=== PATIENT | female | born 2000 ===

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

== ENCOUNTER 2019-01-22 20:28 | Outpatient (CLI) | payer MEDICAID ==
[~2019-01-22] VITALS: Ht 170.2 cm; Wt 76.4 kg
--- NOTE | 2019-01-22 20:35 | NUR ---
SHERINE VALDEZ V presented to unit via ambulatory from ED registration, accompanied by family member, with c/o FALL/LOTS OF MOVEMENT. SHERINE VALDEZ V weighed, gowned, voided, and to bed. EFHM and TOCO applied, VS taken. SHERINE VALDEZ V oriented to bed controls, call light, TV, heat, and A/C controls. up changing assessments to follow per this rn.
[2019-01-22 22:00] VITALS: BP 108/70
[2019-01-22] MEDS ORDERED: PREN-53 PO (23:40)
[2019-01-23 00:37] VITALS: BP 105/65
--- NOTE | 2019-01-23 00:40 | NUR ---
Discharge packet given and explained, understanding voiced, denies needs or concerns. Pt ambulatory off unit at this time accompanied by family member.
--- NOTE | 2019-01-25 22:03 | Physician Query-Final Dx ---
MARKUS FISCHER 01/25/19 2203: Clinic Account Progress/Dx Physician Query: Please give diagnosis Date of Service Jan 22, 2019 at 20:28 ANGELIKA PIKE MD 02/08/19 1253: Clinic Account Progress/Dx DIAGNOSIS: Diagnosis Decreased movement at 25 weeks. MARKUS FISCHER Jan 25, 2019 22:03 ANGELIKA PIKE MD Feb 08, 2019 12:53
== END 2019-01-23 00:40 | disposition home or self-care (01) ==
LOC: LDRP 20:28 → WSo 20:28
PROVIDERS: ATTEND Family Medicine
DX: O36.8120 Decreased fetal movements, second trimester, not applicable or unspecified (principal); Z3A.25 25 weeks gestation of pregnancy
CPT/HCPCS: 99213

== ENCOUNTER 2019-04-26 08:24 | Inpatient (IN) | payer MEDICAID ==
[2019-04-26] VITALS (25 sets, daily range): BP systolic 114–143; BP diastolic 69–97
[~2019-04-26] VITALS: Ht 170.2 cm; Wt 76.4 kg
[~2019-04-26 08:24] MED LIST: PREN-53 PO
--- NOTE | 2019-04-26 08:30 | NUR ---
SHERINE VALDEZ V presented to unit via AMBULATION from ED, accompanied by MOTHER, with c/o LABOR. SHERINE VALDEZ V weighed, gowned, voided, and to bed. EFHM and TOCO applied, VS taken. SHERINE VALDEZ V oriented to bed controls, call light, TV, heat, and A/C controls.
--- NOTE | 2019-04-26 08:35 | NUR ---
SEE LABOR FLOWSHEET FOR DOCUMENTATION.
--- NOTE | 2019-04-26 08:45 | NUR ---
PT REPORTS C/O CONTRACTIONS OFF AND ON FOR THE LAST TWO DAYS, WITH INCREASING PAIN TODAY AND SLIGHT SPOTTING THIS AM IN THE SHOWER, PT DENIES LEAKING FLUID, DECREASED MOVEMENT, RECENT INTERCOURSE OR OTHER C/O. PT REPORTS SEEING DR YOUNG ON FridayMarch AND WAS 2CM, 75%. PT IS SCHEDULED FOR 10:[address] YOUNG. INITIAL ASSESSMENT COMPLETED, VSS, PLAN OF CARE EXPLAINED WILL MONITOR CLOSELY.
[2019-04-26] MEDS ORDERED: MEPIVACAINE (CARBOCAINE) 2% 50 ML VIAL ONE (09:58)
[2019-04-26] MEDS ORDERED: D5 LR IV SOLUTION 1,000 ML IV ONE (09:59)
[2019-04-26] MEDS ORDERED: OXYTOCIN/NORMAL SALINE 500 ML IV ONE (09:59)
[2019-04-26] MEDS ORDERED: D5 LR IV SOLUTION 1,000 ML IV SCH (10:11)
[2019-04-26 10:32] LABS: BASOPHILS % (AUTO) 0 % (0-10); EOSINOPHILS % (AUTO) 0 % (0-10); HEMATOCRIT 38 % (35-52); HEMOGLOBIN 13.2 G/DL (11.5-16.0); LYMPHOCYTES # (AUTO) 0.9 X 10^3 (1.0-4.0); LYMPHOCYTES % (AUTO) 6 % (12-44); MEAN CORPUSCULAR HEMOGLOBIN 29 PG (25-34); MEAN CORPUSCULAR HGB CONC 35 G/DL (32-36); MEAN CORPUSCULAR VOLUME 83 FL (80-99); MEAN PLATELET VOLUME 11.7 FL (7.4-10.4); MONOCYTES # (AUTO) 0.8 X 10^3 (0.0-1.0); MONOCYTES % (AUTO) 5 % (0-12); NEUTROPHILS # (AUTO) 13.3 X 10^3 (1.8-7.8); NEUTROPHILS % (AUTO) 89 % (42-75); PLATELET COUNT 212 10^3/uL (130-400); RED CELL DISTRIBUTION WIDTH 13.8 % (10.0-14.5)
--- NOTE | 2019-04-26 10:44 | History & Physical-OB ---
OB - Chief Complaint & HPI Date/Time Date of Admission: Date of Admission: Apr 26, 2019 at 10:00 Date seen by a Provider: Apr 26, 2019 Time Seen by a Provider: 10:15 Chief Complaint/History OB-Reason for Admission/Chief: Onset of Labor Hx : 1 Hx Para: 0 Expected Date of Delivery: May 02, 2019 Gestational Age in Weeks: 39 Gestational Age in Days: 1 Admission Nurse Assessment Rev: Yes Allergies and Home Medications Allergies Coded Allergies: No Known Drug Allergies (Unverified , 04/26/19) Home Medications Zeg752/Iron Fumarate/FA/Dss 1 Each Tablet, 1 EACH PO DAILY, (Reported) Patient Home Medication List Home Medication List Reviewed: Yes OB - History Hx of Present Ultrasounds: Normal mid trimester US Medical Complications: None Patient Past Medical History No chronic medical problems OB - Admission Exam Physical Exam Lungs: Clear Abdomen: Gravid Cervical Dilatation: 10cm Effacement: 100% Station: +1 Membranes: Intact Amniotic Fluid: Clear Heart Rate: 140's Accelerations: Accelerations Present Short Term Variability: Absent Senior Living Variability: Average (6-25) Intensity: Moderate Labs Laboratory Tests Test 04/26/19 10:15 Range/Units White Blood Count 15.0 H 4.3-11.0 10^3/uL Red Blood Count 4.57 4.35-5.85 10^6/uL Hemoglobin 13.2 11.5-16.0 G/DL Hematocrit 38 35-52 % Mean Corpuscular Volume 83 80-99 FL Mean Corpuscular Hemoglobin 29 25-34 PG Mean Corpuscular Hemoglobin Concent 35 32-36 G/DL Red Cell Distribution Width 13.8 10.0-14.5 % Platelet Count 212 130-400 10^3/uL Mean Platelet Volume 11.7 H 7.4-10.4 FL Neutrophils (%) (Auto) 89 H 42-75 % Lymphocytes (%) (Auto) 6 L 12-44 % Monocytes (%) (Auto) 5 0-12 % Eosinophils (%) (Auto) 0 0-10 % Basophils (%) (Auto) 0 0-10 % Neutrophils # (Auto) 13.3 H 1.8-7.8 X 10^3 Lymphocytes # (Auto) 0.9 L 1.0-4.0 X 10^3 Monocytes # (Auto) 0.8 0.0-1.0 X 10^3 Eosinophils # (Auto) 0.0 0.0-0.3 10^3/uL Basophils # (Auto) 0.0 0.0-0.1 10^3/uL OB - Assessment/Plan/Diagnosis Assessment Assessment: active labor Admission Dx 1. IUP at 39 weeks Admission Status: Inpatient Order (span 2 midnights) Reason for Inpatient Admission: L&D Plan Plan: Expectant Management ROSIO YOUNG MD Apr 26, 2019 10:44
[2019-04-26 11:04] LABS: BAND NEUTROPHILS 5 %; EOSINOPHILS % (MANUAL) 1 %; LYMPHOCYTES % (MANUAL) 5 %; MONOCYTES % (MANUAL) 5 %; NEUTROPHILS % (MANUAL) 84 %; POLYCHROMASIA SLIGHT
[2019-04-26] MEDS ORDERED: BENZOCAINE/MENTHOL (DERMOPLAST) 56 ML CAN TP ONE (11:12)
[2019-04-26] MEDS ORDERED: OXYTOCIN/NORMAL SALINE 500 ML IV SCH (11:27)
[2019-04-26] MEDS: IBUPROFEN 600 MG (MOTRIN) TAB PO SCH ×3 (11:30→23:10)
[2019-04-26] MEDS ORDERED: BENZOCAINE/MENTHOL (DERMOPLAST) 56 ML CAN TP PRN (11:30)
[2019-04-26] MEDS ORDERED: MEASLES,MUMPS,RUBELLA 1 EA INJ SQ ONE (11:30)
[2019-04-26] MEDS ORDERED: TETANUS,DIPTH,PERTUSS P/F (BOOSTRIX) 0.5 ML VIAL IM ONE (11:30)
[2019-04-26] MEDS ORDERED: WITCH HAZEL(TUCKS) 40 EA JAR TOP PRN (11:30)
--- NOTE | 2019-04-26 11:31 | NUR ---
SCHEDULED MOTRIN GIVEN PO, 2ND PITOCIN BAG STARTED. FFU/2 LT LOCHIA NOTED.
--- NOTE | 2019-04-26 11:31 | OB Labor & Delivery Record ---
L&D History Date of Service Date of Service: Apr 26, 2019 History Expected Date of Delivery: May 02, 2019 Gestational Age in Weeks: 39 Hx : 1 Hx Para: 0 Complications Events: Routine care Operative Indications (Cesarea: N/A-Vaginal Delivery Intrapartal Events: None L&D Stage1 Stage One Onset of Labor - Date: Apr 26, 2019 Onset of Labor - Time: 03:00 Monitors and Tracing Monitor Mode: External Monitor Accelerations: Uniform Monitor Decelerations: None Station: 0 Group Home Variability: Average (6-10) Short Term Variability: Present Presentation: Vertex Signs of Distress by FHT Signs of Distress no Rupture of Membranes Spontaneous Ruture of Membrane: No Amniotic Membrane Rupture Time: 10:45 Amniotic Membrane Fluid Desc.: Clear Vaginal Bleeding Description: None L&D Stage2 Stage Two Stage II Date: Apr 26, 2019 Stage II Time: 11:00 Monitors and Tracing Monitor Mode: Internal Monitor Accelerations: Uniform Monitor Decelerations: None Obgyn Specialist Variability: Average (6-10) Position: Left Occiput Anterior Presentation: Vertex Signs of Distress by FHT Signs of Distress no Cord Descript/Complications Cord Vessel Description: 3 Vessels Delivery Type Infant Delivery Method: Spontaneous Vaginal Anterior Shoulder: Left Episiotomy/Perineal Laceration Laceraction(s)/Extensions: Yes Episiotomy Description: Periurethral Extnsion/lac, Perineal Extension/lac (Left) Sutures Used: Vicryl Condition of Infant Delivery 1 minute Comment: 8 5 minute Comment: 9 Condition of Infant Condition of Infant: Living Exam: No Observed Abnormalities Resuscitation Resuscitation: N/A - Spontaneous Resp L&D Stage3 Stage Three Stage III Date: Apr 26, 2019 Stage III Time: 11:05 Placenta Delivery Placenta Delivery: Spontaneous Delivery Summary Summary Estimated blood loss (mL): 200 Condition of Delivery Examined: Cervix Examined Post Hemorrhage: No Intervention Required none ROSIO YOUNG MD Apr 26, 2019 11:31
[2019-04-26] MEDS ORDERED: CATHETER FLUSH 10 ML SYR IV SCH ×2 (14:00)
--- NOTE | 2019-04-26 15:20 | NUR ---
PERICARE PREFORMED, FFU/2 PAD AND PANTIES APPLIED, PT TRANSFERRED TO ROOM [id number] BY FOR CONTINUED PP CARE. NO DISTRESS NOTED, WILL MONITOR.
[2019-04-26] MEDS ORDERED: MEPIVACAINE (CARBOCAINE) 2% 20 ML VIAL INJ ONE (16:30)
--- NOTE | 2019-04-26 16:40 | NUR ---
IV COMPLETE, IV HEP LOCKED. AMBULATED TO BR, VOIDED WITHOUT DIFFICULTY. S/O AT SIDE.
--- NOTE | 2019-04-26 18:51 | NUR ---
PT RESTING IN BED WITH FAMILY AND INFANT AT SIDE, NO DISTRESS NOTED, WILL MONITOR CLOSELY.
--- NOTE | 2019-04-26 20:20 | NUR ---
PT WITH AT SIDE. NO NEEDS OR CONCERNS VOICED. WILL RETURN FOR ASSESSMENT.
[2019-04-26] MEDS: DOCUSATE SODIUM 100 MG (COLACE) CAP PO SCH (23:10)
--- OUTSIDE RECORDS SUMMARY | 2019-04-27 00:58 | XMS REPORT ---
Author Author ANNIE MINER Organization [facility] Address [address] [place] [address] Care Team Providers Care Electrical Engineering Manager Name Role Phone ANNIE MINER Unavailable PROBLEMS Type Condition ICD9-CM Code XBR18-EV Code Onset Dates Condition Status SNOMED Code Problem Dermatophytosis of nail 110.1 Active 873532585 Problem Other acne 706.1 Active 22484345 Problem Encounter for long-term (current) use of other medications V58.69 Active 545547317 ALLERGIES No Known Allergies SOCIAL HISTORY Never Assessed PLAN OF CARE Activity Details Follow Up 1 Year with shae Miner visit Reason: VITAL SIGNS Height 64.5 in 2017-01-09 Weight 160.9 lbs 2017-01-09 Temperature 98.6 degrees Fahrenheit 2017-01-09 Heart Rate 112 bpm 2017-01-09 Respiratory Rate 18 2017-01-09 BMI 27.19 kg/m2 2017-01-09 Blood pressure systolic 108 mmHg 2017-01-09 Blood pressure diastolic 66 mmHg 2017-01-09 MEDICATIONS Medication Instructions Dosage Frequency Start Date End Date Duration Status Depo-Provera 150 MG/ML 1 ml Dec, May, 30 day(s) Active RESULTS Name Result Date Reference Range TEST, URINE (IN HOUSE) 2017-01-09 RESULTS negative Lot # [id number] Control + Exp date 01/2018 PROCEDURES Procedure Date Ordered Result Body Site URINE TEST January 09, 2017 DEPO PROVERA (150 MG/ML) January 09, 2017 THER/PROPH/DIAG INJ, SC/IM January 09, 2017 IMMUNIZATIONS Vaccine Route Administration Date Status DEPO PROVERA (150 MG/ML) IM Intramuscular January 09, 2017 Administered
--- OUTSIDE RECORDS SUMMARY | 2019-04-27 00:58 | XMS REPORT ---
Author Author CLEMENTINA BRINK [facility] IN [facility] Address [address] [place] [address] Care Team Providers Care Truck Driving Instructor Name Role Phone KEENACLEMENTINA Unavailable PROBLEMS Type Condition ICD9-CM Code [id number]-SC Code Onset Dates Condition Status SNOMED Code Problem Amenorrhea N91.2 Active 38738591 ALLERGIES No Known Allergies ENCOUNTERS Encounter Location Date Diagnosis [facility] [id number] [place] [phone] Sep, test positive Z32.01 ; Nausea R11.0 and Amenorrhea N91.2 [facility] [place] [id number] [place] [phone] 16 Dec, 2016 control counseling Z30.09 and Encounter for Depo-Provera contraception Z30.42 [facility] [id number] [place] [phone] 14 Jan, 2015 [facility] [place] [id number] [place] [phone] 13 Jan, 2015 [facility] [place] [id number] [place] [phone] Jul, [facility] [place] [id number] [place] [phone] Jul, [facility] [place] [id number] [place] [phone] Jul, [facility] [place] [id number] [place] [phone] Jul, [facility] [place] [id number] [place] [phone] Jul, IMMUNIZATIONS No Known Immunizations SOCIAL HISTORY Never Assessed REASON FOR VISIT Stomach ache x2 weeks Shadia, LMP 08-01-18 PLAN OF CARE Activity Details Follow Up Action was sent for OB intake. Reason:We will call you with follow up VITAL SIGNS Height 64.5 in 2018-09-26 Weight 153.6 lbs 2018-09-26 Temperature 97.8 degrees Fahrenheit 2018-09-26 Heart Rate 84 bpm 2018-09-26 Respiratory Rate 20 2018-09-26 BMI 25.96 kg/m2 2018-09-26 Blood pressure systolic 100 mmHg 2018-09-26 Blood pressure diastolic 62 mmHg 2018-09-26 MEDICATIONS No Known Medications RESULTS Name Result Date Reference Range TEST, URINE (IN HOUSE) 2018-09-26 RESULTS positive Lot # [id number] Control + Exp date 2020-02-24 PROCEDURES Procedure Date Ordered Result Body Site URINE TEST Sep 26, 2018 INSTRUCTIONS MEDICATIONS ADMINISTERED No Known Medications MEDICAL (GENERAL) HISTORY Type Description Date Medical History Dermatophytosis of nail Surgical History No know Surgical history
--- OUTSIDE RECORDS SUMMARY | 2019-04-27 00:58 | XMS REPORT ---
Author Author Migration, Doctor Organization [facility] Address Unknown Phone Unavailable Care Team Providers Care Rough Rice Tender Name Role Phone Migration, Doctor Unavailable Unavailable PROBLEMS Type Condition ICD9-CM Code RFJ28-LL Code Onset Dates Condition Status SNOMED Code Problem Amenorrhea N91.2 Active 08506283 ALLERGIES No Information ENCOUNTERS Encounter Location Date Diagnosis [facility] [address], [place] [address] Sep, test positive Z32.01 ; Nausea R11.0 and Amenorrhea N91.2 [facility] [address], [place] [phone] 16 Dec, 2016 control counseling Z30.09 and Encounter for Depo-Provera contraception Z30.42 [facility] [id number] [place] [phone] 14 Jan, 2015 [facility] [id number] [place] [phone] 13 Jan, 2015 [facility] [id number] [place] [phone] Jul, [facility] [id number] [place] [phone] Jul, [facility] [id number] [place] [phone] Jul, [facility] [id number] [place] [phone] Jul, [facility] [id number] [place] [phone] Jul, IMMUNIZATIONS No Known Immunizations SOCIAL HISTORY Never Assessed REASON FOR VISIT [facility]MR-[facility] PLAN OF CARE VITAL SIGNS MEDICATIONS Medication Instructions Dosage Frequency Start Date End Date Duration Status Isotretinoin by oral route Jul, Active RESULTS No Results PROCEDURES No Known procedures INSTRUCTIONS MEDICATIONS ADMINISTERED No Known Medications MEDICAL (GENERAL) HISTORY Type Description Date Medical History Dermatophytosis of nail Surgical History No know Surgical history
--- OUTSIDE RECORDS SUMMARY | 2019-04-27 00:58 | XMS REPORT | Continuity of Care Document ---
Author Organization Unknown Address Unknown Allergies Active Description Code Type Severity Reaction Onset Reported/Identified Relationship to Patient Clinical Status Yes No Known Drug Allergies [id number] Drug Allergy Unknown N/A 04/26/2019 Medications There is no data. Problems Date Dx Coded Attending Type Code Diagnosis Diagnosed By 08/08/2010 VI MCKEON MD 075 INFECTIOUS MONONUCLEOSIS 02/15/2011 LINDA HURLEY, VI V05.4 VARICELLA, CHICKENPOX 02/15/2011 VI MCKEON MD V06.5 DT, TETANUS-DIPHTHERIA [TD] ,TDAP 07/29/2014 LINDA HURLEY VI 110.1 DERMATOPHYTOSIS OF NAIL 07/29/2014 LINDA HURLEY VI 706.1 ACNE 07/29/2014 LINDA HURLEY VI V58.69 MEDICATION HIGH RISK 11/19/2018 ROSIO YOUNG MD, Ot Z34.92 ENCNTR FOR SUPRVSN OF NORMAL PREG, UNSP, 11/19/2018 ROSIO YOUNG MD, Ot Z3A.16 16 WEEKS GESTATION OF 12/10/2018 ROSIO YOUNG MD, Ot Z34.92 ENCNTR FOR SUPRVSN OF NORMAL PREG, UNSP, 12/10/2018 ROSIO YOUNG MD, Ot Z3A.16 16 WEEKS GESTATION OF 01/22/2019 ROSIO YOUNG MD, Ot Z34.92 ENCNTR FOR SUPRVSN OF NORMAL PREG, UNSP, 01/22/2019 ROSIO YOUNG MD, Ot Z3A.16 16 WEEKS GESTATION OF Procedures There is no data. Results Test Result Range Complete blood count (CBC) with automated white blood cell (WBC) differential - 04/26/19 10:15 Blood leukocytes automated count (number/volume) 15.0 10*3/uL 4.3-11.0 Blood erythrocytes automated count (number/volume) 4.57 10*6/uL 4.35-5.85 Venous blood hemoglobin measurement (mass/volume) 13.2 g/dL 11.5-16.0 Blood hematocrit (volume fraction) 38 % 35-52 Automated erythrocyte mean corpuscular volume 83 [foz_us] 80-99 Automated erythrocyte mean corpuscular hemoglobin (mass per erythrocyte) 29 pg 25-34 Automated erythrocyte mean corpuscular hemoglobin concentration measurement (mass/volume) 35 g/dL 32-36 Automated erythrocyte distribution width ratio 13.8 % 10.0- 14.5 Automated blood platelet count (count/volume) 212 10*3/uL 130-400 Automated blood platelet mean volume measurement 11.7 [foz_us] 7.4-10.4 Automated blood neutrophils/100 leukocytes 89 % 42-75 Automated blood lymphocytes/100 leukocytes 6 % 12-44 Blood monocytes/100 leukocytes 5 % 0-12 Automated blood eosinophils/100 leukocytes 0 % 0-10 Automated blood basophils/100 leukocytes 0 % 0-10 Blood neutrophils automated count (number/volume) 13.3 10*3 1.8-7.8 Blood lymphocytes automated count (number/volume) 0.9 10*3 1.0-4.0 Blood monocytes automated count (number/volume) 0.8 10*3 0.0- 1.0 Automated eosinophil count 0.0 10*3/uL 0.0-0.3 Automated blood basophil count (count/volume) 0.0 10*3/uL 0.0-0.1 Manual absolute plasma cell count - 04/26/19 10:15 Blood monocytes/100 leukocytes 5 % NRG Manual blood segmented neutrophils/100 leukocytes 84 % NRG Blood band neutrophils/100 leukocytes 5 % NRG Manual blood lymphocytes/100 leukocytes 5 % NRG Manual eosinophils/100 leukocytes in nose 1 % NRG Blood polychromasia detection by light microscopy SLIGHT NRG Blood type T Indirect antibody screen panel - 04/26/19 10:35 WRISTBAND NUMBER [id number] NRG ABO+Rh group OP NRG Blood group antibody screen NEGATIVE NRG Encounters ACCT No. Visit Date/Time Discharge Status Pt. Type Provider Facility Loc./Unit Complaint [id number] 07/29/2014 15:49:00 07/29/2014 23:59:59 CLS Outpatient LINDA HURLEY, VI [id number] 01/22/2019 20:28:00 01/23/2019 00:40:00 DIS Outpatient GLENDY HURLEY, ANGELIKA Cervantes [facility] WSo FALL/LOTS OF MOVEMENT [id number] 11/19/2018 09:47:00 11/19/2018 23:59:59 CLS Outpatient ROSIO YOUNG MD [facility] RAD DATES [id number] 04/26/2019 10:00:00 ACT Inpatient ROSIO YOUNG MD [facility] LDRP LABOR [id number] 09/26/2018 11:50:00 09/26/2018 23:59:59 CLS Outpatient MICHELINE ANDERSON [facility]
[2019-04-27 03:00] VITALS: BP 108/65
--- NOTE | 2019-04-27 03:00 | NUR ---
PT REPORTS SHE HAS BEEN RESTING WELL. DENIES ANY PAIN. DENIES ANY NEEDS. VSS.
[2019-04-27 05:35] LABS: BASOPHILS % (AUTO) 0 % (0-10); EOSINOPHILS # (AUTO) 0.1 10^3/uL (0.0-0.3); EOSINOPHILS % (AUTO) 0 % (0-10); HEMATOCRIT 34 % (35-52); HEMOGLOBIN 11.5 G/DL (11.5-16.0); LYMPHOCYTES # (AUTO) 1.1 X 10^3 (1.0-4.0); LYMPHOCYTES % (AUTO) 7 % (12-44); MEAN CORPUSCULAR HEMOGLOBIN 29 PG (25-34); MEAN CORPUSCULAR HGB CONC 34 G/DL (32-36); MEAN CORPUSCULAR VOLUME 85 FL (80-99); MONOCYTES # (AUTO) 1.1 X 10^3 (0.0-1.0); MONOCYTES % (AUTO) 7 % (0-12); NEUTROPHILS % (AUTO) 86 % (42-75); PLATELET COUNT 152 10^3/uL (130-400); WHITE BLOOD COUNT 15.3 10^3/uL (4.3-11.0)
--- NOTE | 2019-04-27 07:00 | NUR ---
DR. YOUNG HERE TO SEE PT.
--- NOTE | 2019-04-27 07:52 | Discharge Summary ---
Diagnosis/Chief Complaint Date of Admission Apr 26, 2019 at 10:00 Date of Discharge April 27, 2019 Discharge Date: Apr 27, 2019 Discharge Time: 15:00 Admission Diagnosis Admission Diagnosis 1. Intrauterine at term 39 weeks gestation Discharge Diagnosis 1. Intrauterine at term 39 weeks gestation Reason Hospital Visit 18-year-old 1 now term 1 presented to [facility] obstetrical services in the morning of April 26, 2019 in full labor. Patient was noted to be basically complete only with anterior rim upon presentation. Her care was unremarkable. Her GBS status is negative. EDC is noted to be May 02, 2019 Discharge Summary-OBS Procedures 1. Spontaneous vaginal delivery 2. Repair of minor first-degree perineal laceration on her left Discharge Physical Examination Allergies: Coded Allergies: No Known Drug Allergies (Unverified , 04/26/19) Vitals & I&Os Vital Signs Date Time Temp Pulse Resp B/P (MAP) Pulse Ox O2 Delivery O2 Flow Rate FiO2 04/27/19 03:00 98.7 90 18 108/65 (79) 98 04/26/19 17:00 Room Air General Appearance: No Acute Distress Respiratory: Clear to Auscultation, Normal Air Movement Cardiovascular: Regular Rate Abdominal: Soft (With uterus firm) Hospital Course Was the Problem List Reviewed?: Yes Following admission patient quickly went on to completion. She delivered over an intact perineum only with a minor first-degree perineal laceration a term viable male. Delivery was accomplished at 1100 on April 26, 2019. Infant received Apgars of 8 at 1 minute and 9 at 5 minutes. Following delivery patient underwent routine care orders. She had no complications during the remainder of hospital stay. She had a hemoglobin the morning of April 27 of 11.5 and this was compared to her admission hemoglobin of 13.2. Patient had no questions in the morning she was with minimal vaginal bleeding. She had no significant cramping. She had no shortness of breath and no leg pain. She was felt ready for dismissal during the afternoon of April 27, 2019. She will follow up in 6 weeks. Pending Labs Laboratory Tests 04/27/19 05:25: White Blood Count 15.3, Red Blood Count 3.95, Hemoglobin 11.5, Hematocrit 34, Mean Corpuscular Volume 85, Mean Corpuscular Hemoglobin 29, Mean Corpuscular Hemoglobin Concent 34, Red Cell Distribution Width 14.0, Platelet Count 152, Mean Platelet Volume 11.0, Neutrophils (%) (Auto) 86, Lymphocytes (%) (Auto) 7, Monocytes (%) (Auto) 7, Eosinophils (%) (Auto) 0, Basophils (%) (Auto) 0, Neutrophils # (Auto) 13.0, Lymphocytes # (Auto) 1.1, Monocytes # (Auto) 1.1, Eosinophils # (Auto) 0.1, Basophils # (Auto) 0.0 Discharge Instructions to patient/family Please see electronic discharge instructions given to patient. Discharge Medications Reviewed and agree with Discharge Medication list on patient's Discharge Instruction sheet Clinical Quality Measures DVT/VTE Risk/Contraindication: Risk Factor Score Per Nursin RFS Level Per Nursing on Admit: 1=Low/No VTE PPX ROSIO YOUNG MD Apr 27, 2019 07:52
--- NOTE | 2019-04-27 07:55 | Discharge Inst-Women's Service ---
Discharge Inst-Women's Serv Depart Medication/Instructions New, Converted or Re-Newed RX: Other (May take ibuprofen 200 mg 2 or 3 tablets every 6 hours as needed for cramps) Consults/Follow Up Additional Follow Up: Yes (Dr Young in 6 weeks) Activity Activity: Activity as Tolerated Driving Instructions: You May Drive Nothing Inside Vagina: No [place] (For 6 weeks) Diet Discharge Diet: Regular Diet Symptoms to Report to : Bleeding Excessive, Fever Over 101 Degrees F, Vaginal Discharge Foul For Any Problems or Questions: Contact Your Physician ROSIO YOUNG MD Apr 27, 2019 07:55
[2019-04-27 09:30] VITALS: BP 95/50
--- NOTE | 2019-04-27 09:30 | NUR ---
A.M. ASSESSMENT COMPLETED. VSS. SET UP PT SHOWER. PLAN TO GO HOME THIS AFTERNOON.
[2019-04-27] MEDS: DOCUSATE SODIUM 100 MG (COLACE) CAP PO SCH (09:49)
--- NOTE | 2019-04-27 11:00 | NUR ---
CONTINUES TO CARE FOR IN ROOM. GOOD INTERACTION NOTED.
[2019-04-27] MEDS: IBUPROFEN 600 MG (MOTRIN) TAB PO SCH (13:11)
[2019-04-27 14:00] VITALS: BP 108/67
--- NOTE | 2019-04-27 14:15 | NUR ---
DISCHARGE INSTRUCTIONS REVIEWED WITH COPY TO PT. STATES UNDERSTANDING OF ALL INSTRUCTIONS AND NEED TO F/U SCHEDULED AND NEEDED.
[2019-04-27 14:30] VITALS: BP 108/67
--- NOTE | 2019-04-27 14:30 | NUR ---
DISMISSED AMB FROM [facility] WITH IN STABLE CONDITION TO FAMILY CAR ACC BY MOTHER AND DESIRAE [place].
== END 2019-04-27 14:30 | disposition home or self-care (01) | DRG 807 ==
LOC: WSo 08:24 → LDRP 08:25 → WS 10:00 → WSo 10:00 → LDRP 13:26
PROVIDERS: ADMIT Family Medicine; ATTEND Family Medicine
PROC: 10E0XZZ Delivery of Products of Conception, External Approach (ICD-10-PCS; principal; 2019-04-26)
PROC: 0HQ9XZZ Repair Perineum Skin, External Approach (ICD-10-PCS; 2019-04-26)
PROC: 0UQMXZZ Repair Vulva, External Approach (ICD-10-PCS; 2019-04-26)
DX: O70.0 First degree perineal laceration during delivery (principal); O71.82 Other specified trauma to perineum and vulva; Z37.0 Single live birth; Z3A.39 39 weeks gestation of pregnancy
CPT/HCPCS: 36415; 85007; 85025; 85027; 86850; 86900; 86901; 99212

== ENCOUNTER → 2021-12-11 | Outpatient (CLI) | payer BC ==
--- NOTE | 2021-12-11 17:12 | Diagnostic Imaging Report ---
PA and lateral chest at 3:33 INDICATION: Chest pain COMPARISON: None. FINDINGS: The heart size is within normal limits. The lungs are clear. There is no evidence for failure, pneumonia or for a pleural effusion. The mediastinum is not widened. The osseous structures are intact. IMPRESSION: There is no evidence for active disease. Dictated by: Dictated on workstation # [id number]
== END ==
LOC: RAD 14:58
PROVIDERS: ATTEND Family Medicine
DX: R07.9 Chest pain, unspecified (principal); R06.00 Dyspnea, unspecified
CPT/HCPCS: 71046